=== PATIENT | female | born 1945 | race Caucasian/White ===

== ENCOUNTER 2022-05-19 07:56 | Outpatient (CLI) | payer MEDICARE, OTHER, SELFPAY ==
--- NOTE | 2022-05-19 08:15 | MR_ITS ---
[address] [address] Phone:?[phone] Fax:?[phone] Referring Physician Information: Merced Henriquez [address] [facility] [address] Phone:?[phone] Fax:?[phone] Patient:?Antonina Hodge D.O.B:?1945 Sex:?Female Phone:? [facility] MRN:?[id number] Exam Date:?05/19/2022 ? EXAM: MRI EXAMINATION OF THE RIGHT SHOULDER CLINICAL INFORMATION: Right shoulder pain. No history of surgery to this area. Weakness. Possible rotator cuff tear. TECHNICAL INFORMATION: Axial PD and PD fat saturation. Coronal PD and T2 fat saturation. Sagittal T2 and PD fat saturation images were acquired. There are no prior studies available for comparison. INTERPRETATION: Bones: There is no Hill-Sachs impaction deformity. Marrow edema signal and cystic change across the anterior two thirds of the greater tuberosity. No other bone marrow edema pattern. Rotator Cuff: There is an abnormal appearance as seen on series 8 image 7 as well as series 4 images 11 and 12 of a 0.5 cm AP by 0.9 cm mediolateral full- thickness tear anterior to the mid supraspinatus tendon situated at approximately the mid humeral head level. Series 8 image 4 and series 4 image 12 demonstrate a 0.5 cm AP by 0.6 cm mediolateral undersurface partial-thickness tear involving the mid tendon insertion. This involves up to three fourths of the tendon fiber thickness. There is a moderate appearance of infraspinatus tendinopathy. The teres minor tendon is intact. Series 3 images 16 and 17 demonstrate a small segment of intrasubstance partial tearing involving the superior subscapularis tendon insertion. No appreciable rotator cuff muscle belly atrophy. Coracoacromial arch: There is no discrete subacromial osseous spur. The bony acromiohumeral interval is measuring 7 to 8 mm. There is no thickening identified of the coracoacromial ligament. Acromioclavicular joint: There is a marked appearance of AC joint DJD. Associated undersurface spurring and resultant mild to moderate underlying supraspinatus deformity. Biceps tendon: The long head biceps tendon is intact and nondisplaced from the bicipital groove. Glenohumeral joint and labrum: There is a small glenohumeral joint effusion. No discrete loose body within the joint. 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 Additional chondromalacia with areas of associated full-thickness cartilage loss along the superior and superomedial humeral head. There is tearing identified involving the superior aspect of the labrum. No other definite evidence for labral tear. No discrete paralabral cyst is identified. CONCLUSION: 1. There is a small full-thickness tear involving the supraspinatus tendon situated at the mid humeral head level. There is an additional small undersurface partial-thickness tear of the supraspinatus tendon insertion maximally involving three fourths of the tendon fiber thickness. No muscle belly atrophy. 2. There is a small segment of intrasubstance partial tearing involving the superior subscapularis tendon insertion. 3. Marked AC joint DJD with resultant mild to moderate underlying supraspinatus deformity. Borderline narrowed acromiohumeral interval. 4. Intact long head biceps tendon and without subluxation from the bicipital groove. 5. 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 KES Electronically signed on 05/19/2022 11:09:00 AM by Quintin Malcolm M.D.
== END 2022-05-19 07:57 | disposition home or self-care (01) ==
LOC: MRI 07:59
PROVIDERS: PCP Internal Medicine; Visit Provider Physician Assistant
DX: M25.511 Pain in right shoulder (principal); M75.101 Unspecified rotator cuff tear or rupture of right shoulder, not specified as traumatic; M19.011 Primary osteoarthritis, right shoulder; M94.211 Chondromalacia, right shoulder; R29.898 Other symptoms and signs involving the musculoskeletal system
CPT/HCPCS: 73221

== ENCOUNTER 2023-12-14 14:17 | Outpatient (CLI) | payer MEDICARE, OTHER, SELFPAY ==
--- NOTE | 2023-12-14 14:30 | MR_ITS ---
[address] [address] Phone:?[phone] Fax:?[phone] Referring Physician Information: Merced Henriquez [address] [facility] [address] Phone:?[phone] Fax:?[phone] Patient:?Antonina Hodge D.O.B:?1945 Sex:?Female Phone:? [facility] MRN:?[id number] Exam Date:?12/14/2023 EXAM: MRI EXAMINATION OF THE LEFT SHOULDER CLINICAL INFORMATION: Left shoulder pain. No history of surgery to this area. Evaluate rotator cuff tear. Evaluate glenohumeral osteoarthritis. TECHNICAL INFORMATION: Coronal STIR as well as axial, sagittal and coronal PD and T2-weighted images were acquired. No prior studies for comparison. INTERPRETATION: Bones: There is no Hill-Sachs impaction deformity. There is a small subchondral cyst involving the inferior glenoid. Marrow edema signal and cystic change involves the posterior greater tuberosity. Rotator Cuff: Series 9 images 7 and 8 as well as series 4 images 15 through 18 demonstrate a 1.4 cm AP by 1.5 cm mediolateral undersurface tear involving the mid to posterior supraspinatus as well as anterior infraspinatus tendon insertions. This maximally involves greater than three fourths of the tendon fiber thickness, but without evidence for a full-thickness tear. There are underlying changes of mild supraspinatus and mild to moderate infraspinatus tendinopathy. The teres minor tendon is intact. Mild superior subscapularis tendinopathy. No appreciable rotator cuff muscle belly atrophy. Coracoacromial arch: There is no discrete subacromial osseous spur. The bony acromiohumeral interval is measuring 6 mm. There is no thickening identified of the coracoacromial ligament. Acromioclavicular joint: Moderate AC joint DJD. No deformity of the underlying supraspinatus tendon. Mild to moderate fluid signal within the subdeltoid bursa. Biceps tendon: The long head biceps tendon is intact and nondisplaced from the bicipital groove. There is a mild appearance of intra-articular tendinopathy. Glenohumeral joint and labrum: There is a moderate glenohumeral joint effusion. No discrete loose body within the joint. Chondromalacia with broad full-thickness cartilage loss identified involving the humeral head. There is additional chondromalacia and full-thickness cartilage loss along the anterior one half to two thirds of the glenoid. No discrete SLAP tear. No discrete paralabral cyst is identified. CONCLUSION: 1. Broad full-thickness cartilage loss identified overlying the humeral head as well as the anterior one half to two thirds of the glenoid. There is a moderate joint effusion. 2. There is a moderate-sized undersurface partial-thickness tear involving the mid to posterior supraspinatus and anterior infraspinatus tendon insertions. This maximally involves greater than three fourths of the tendon fiber thickness. Overall mild supraspinatus and mild to moderate infraspinatus tendinopathy. 3. Mild subscapularis tendinopathy. 4. Moderate AC joint DJD with mild narrowing of the acromiohumeral interval. Mild to moderate subdeltoid bursitis. 5. Mild intra-articular long head biceps tendinopathy. KES Electronically signed on 12/15/2023 9:23:00 AM by Quintin Malcolm M.D.
== END 2023-12-14 14:18 | disposition home or self-care (01) ==
LOC: MRI 14:20
PROVIDERS: PCP Internal Medicine; Visit Provider Physician Assistant
DX: M25.512 Pain in left shoulder (principal); M25.412 Effusion, left shoulder; M75.102 Unspecified rotator cuff tear or rupture of left shoulder, not specified as traumatic; M19.012 Primary osteoarthritis, left shoulder; M75.52 Bursitis of left shoulder; G89.29 Other chronic pain
CPT/HCPCS: 73221